=== PATIENT | male | born 1980 | race Caucasian/White ===

== ENCOUNTER 2024-11-02 06:25 | Day surgery (SDC) | payer BC, SELFPAY ==
[2024-11-02 09:24] VITALS: BMI 31.6
[2024-11-02 09:25] VITALS: BMI 31.6
[2024-11-02 09:26] VITALS: BP 133/83
[2024-11-02] MEDS: TYLENOL 1000 MG PO (09:41)
[2024-11-02] MEDS: NORMOSOL-R/PLASMALYTE-A 1000 IV (09:42)
--- NOTE | 2024-11-02 10:31 | HP.FOC2 ---
Focused History & Physical
Chief Complaint
HPI:
Chief Complaint: Umbilical hernia
HPI / Indication for Planned Procedure: Patient is a 45-year-old male with a longstanding history of a protrusion present in the umbilical area that has become more noticeable slowly enlarging to the point that his umbilical hernia is now always
present. Occasional discomfort. Patient presents today for scheduled operative correction after recent outpatient surgical evaluation.
Relevant Past Medical History: Other (GERD, osteoarthritis of the lower back, carpal tunnel history, history of cat scratch disease)
Relevant Social History: Negative
Relevant Family History: Negative
Relevant Past Surgical History: Positive for (Lymph node biopsy, tonsillectomy)
Review of Systems
Review of Pertinent Systems: All Systems Negative
Medication
See Medication form for detailed medications: Yes
Medication List (including Herbals & OTC):
Glucosamine 2 cap PO DAILY 10/28/24
Medications Reviewed: Yes
Allergies and Reactions
Patient has Allergies: Yes
Noted Allergies and Reactions:
Allergy/AdvReac Type Severity Reaction Status Date / Time
codeine Allergy Nausea Verified 11/02/24 09:24
Pertinent Physical Exam
All Other Systems: Negative
Head/Neck: Normal
Lungs: Normal
Heart: Normal
Abdomen: Other (Soft, reducible umbilical hernia, 2 cm fascial defect)
Extremities: Normal
Neurological: Normal
Diagnosis / Assessment
44-year-old male presenting for scheduled operative correction symptomatic umbilical hernia.
Plan / Procedure
Robotic assisted laparoscopic repair umbilical hernia with mesh
Anesthesia/Sedation to be done by Anesthesia Provider: Yes
--- NOTE | 2024-11-02 10:33 | W.SUR.PREOP ---
Pre-Operative Surgical Note
-
I have examined this patient prior to the performance of the scheduled procedure.
The patient's condition is unchanged from the time of the current History and
Physical and the patient is able to undergo the scheduled procedure.
--- NOTE | 2024-11-02 12:32 | W.IMMPOSTOP ---
Surgical Immed Post Op Note
-
Primary Surgeon: Cecil Garcia MD
Assisting Surgeon: Talisha Soto PA-C
Pre-op Diagnosis: Umbilical hernia
Post-op Diagnosis: Umbilical hernia + ventral hernia; 2.5 cm
Procedure Performed: Robotic assisted laparoscopic repair UH/VH with mesh; soft mesh 12 cm x 10 cm
Anesthesia Type: GETA +0.25% Marcaine with epi
Specimen / Cultures: None
Estimated Blood Loss: 6 mL
Complications: None immediate
Operative Findings: Umbilical hernia containing peritoneum and preperitoneal fat. Fascial defect 2.5 cm maximal length horizontally. Immediately above umbilical fascial defect was a separate 1 cm or slightly smaller maximal length ventral hernia.
Together both hernias also spanned maximal vertical length of 2.5 cm. Umbilical hernia closed with 0 PDS STRATAFIX symmetric suture in a running continuous fashion. Ventral hernia closed with [id number] 0 PDS STRATAFIX suture. Underlay
preperitoneal mesh repair, Bard soft mesh 12 cm vertically by 10 cm in width. Secured with 2-0 Vicryl to linea alba and right/left lateral posterior sheath. Peritoneal flap closed with 2-0 Monocryl STRATAFIX spiral.
The assistance of Talisha Soto PA-C was required due to the complexity of the procedure. During the procedure Talisha Soto PA-C assisted with port placement, robotic instrumentation and suture material exchanges, and closure of the surgical incision
sites. I was present for the entirety of the operative procedure.
--- NOTE | 2024-11-02 12:38 | OR.RPT ---
Operative Report
Operative Report
Date of operative procedure: 11/02/2024
Primary Surgeon: Cecil Garcia MD
Marble Cleaner: Talisha Soto PA-C
Pre-op Diagnosis: Umbilical hernia
Post-op Diagnosis: Umbilical hernia + ventral hernia; 2.5 cm maximal length
Procedure Performed: Robotic assisted laparoscopic JOSE repair umbilical hernia/ventral hernia with mesh; Bard soft 12 cm x 10 cm
Anesthesia: GETA +0.25% Marcaine
Specimen / Cultures: None/none
Estimated Blood Loss: 6 mL
Complications: None immediate
Indications for Operative Procedure: Patient is a 45-year-old male with a longstanding history of a protrusion present in the umbilical area that has become more noticeable slowly enlarging to the point that his umbilical hernia is now always
present. Occasional discomfort. Patient presents today for scheduled operative correction after recent outpatient surgical evaluation. We discussed various operative approaches to repair and elected to proceed with a robotic assisted laparoscopic
umbilical herniorrhaphy with mesh. The anticipated operative procedure was fully reviewed in detail with the patient preoperatively obtaining written informed consent. See office visit consultation for full details regarding discussions.
Brief Summary of Operative Findings: Umbilical hernia containing peritoneum and preperitoneal fat. Fascial defect 2.5 cm maximal length horizontally. Immediately above umbilical fascial defect was a separate 1 cm or slightly smaller maximal
length ventral hernia. Together both hernias also spanned maximal vertical length of 2.5 cm. Umbilical hernia closed with 0 PDS STRATAFIX symmetric suture in a running continuous fashion. Ventral hernia closed with [id number] 0 PDS STRATAFIX
suture. Underlay preperitoneal mesh repair, Bard soft mesh 12 cm vertically by 10 cm in width. Secured with 2-0 Vicryl to linea alba and right/left lateral posterior sheath. Peritoneal flap closed with 2-0 Monocryl STRATAFIX spiral. No
additional incidental findings on cursory inspection of the abdomen.
Operation in Detail: The patient was identified in the preoperative holding area. I confirmed the umbilical surgical site/location with the patient preoperatively. He was interviewed by the anesthesia and nursing staff then brought back to the
operating room. The patient was placed on the operating table in supine position. The bilateral upper extremities were carefully padded and tucked at the side utilizing the arm guard positioning system. Pneumatic compression boots were on the
bilateral lower extremities. Following induction of general endotracheal anesthesia the patient was administered Ancef 2 g IV for prophylactic antibiotic coverage. The patient's anterior abdominal wall was now widely and sterilely prepped with
ChloraPrep and then draped in the usual manner. The surgical time out was completed and the procedure was confirmed.
I initially proceeded with Veress needle insufflation at the left subcostal midclavicular line location. Once insufflated to 12 mmHg pressure then an 8 mm trocar was placed along the left lateral abdominal wall long term between the left costal
margin and the left ASIS and about 8 cm laterally from the anticipated left lateral boarder of the mesh placement. The robotic scope was now inserted. There was no evidence of iatrogenic injury from access. The Veress needle was withdrawn. A left
subcostal lateral 8 mm trocar and a left lower quadrant 8 mm trocar just superior/medial to the ASIS were now placed under direct visualization. The patient was then transition into slight Trendelenburg and right side down to aid in exposure of the
anterior abdominal wall. The robot was then docked.
At the surgeon console inspection confirmed the presence of a reducible umbilical hernia containing preperitoneal fat and peritoneum. There were no additional incidental intra-abdominal findings.
I initially began with the creation of a peritoneal flap along the left lateral abdominal wall. The flap was begun by incising the peritoneum along the left lateral aspect of the central abdominal wall fat pad cranially about 5cm superior to the
fascial defect. The peritoneal incision was now carried down further laterally into the left lower quadrant in an arc like manner with preservation of the posterior sheath. The preperitoneal plane was now established along the length of the flap
and developed towards the midline where the central abdominal wall fat pad was taken down with the peritoneum superiorly and inferiorly to the fascial defect. During the midline exposure of the linea alba a separate small ventral hernia defect was
noted just superior to the umbilicus. This fascial defect was only 1 cm slightly smaller in maximal length. The preperitoneal fat was fully reduced. The umbilical hernia sac and contents were now completely reduced with care to preserve the dermis
of the umbilical stalk and its subcutaneous blood supply. The peritoneal flap along the entire length was now mobilized well onto the right lateral side of the abdominal wall to allow for mesh placement with good circumferential coverage.
The umbilical fascial defect was now measured to be 2.5 cm vertically by 1 cm in width. The separate ventral hernia was only 1 cm. Incorporating a fascial bridge between these 2 defects measured 2.5 cm as well. Fascial edges were confirmed to be
cleared. The umbilical hernia defect was then closed with a running continuous 0 PDS STRATAFIX along the horizontal orientation. The small ventral hernia was closed with a [id number] 0 PDS STRATAFIX suture. A Bard soft mesh measuring 12 cm
vertically by 10 cm in width was then introduced through the 8mm trochar. The mesh was positioned within the preperitoneal flap in an underlay fashion and centered over the fascial defects to get 5 cm of coverage in all directions from the closure.
The mesh was then secured centrally to the linea alba at 2 separate locations with interrupted 2-0 Vicryl suture. The mesh was also secured at the right and left lateral borders with 2 additional interrupted 2-0 Vicryl sutures to the posterior
sheath. Hemostasis was now assured. The left lateral margin of the peritoneal flap was closed with a running continuous 2-0 Monocryl STRATAFIX suture run in a Lisandro stitch fashion. The air was aspirated out of the flap with a flexible suction
catheter confirming complete occlusion of the flap. The peritoneal covering of the mesh was completely intact as well.
At this point the robot was undocked. All sponge, instrument and needle counts were confirmed to be correct x 2. The CO2 insufflation was now fully evacuated out of the abdominal cavity. The trocar sites were removed as well as the flexible
suction catheter. Skin was closed with 4-0 Monocryl. Sterile surgical glue dressings were applied. The patient tolerated the procedure well and was transferred to the recovery unit for routine postoperative monitoring.
The assistance of Talisha Soto PA-C was required due to the complexity of surgery. During the procedure Talisha Soto PA-C assisted with port placement, robotic instrument and suture material exchanges as well as closure of the surgical sites. I
was present for the entirety of the operative procedure.
[2024-11-02 12:51] VITALS: BP 133/83; BP 146/71
[2024-11-02 13:00] VITALS: BP 144/83
[2024-11-02 13:15] VITALS: BP 142/74
[2024-11-02 13:30] VITALS: BP 146/67
[2024-11-02 14:00] VITALS: BP 146/87
== END 2024-11-02 14:08 | disposition home or self-care (01) ==
LOC: SDS 06:25
PROVIDERS: ATTENDING PHYSICIAN Surgery
DX: K42.9 Umbilical hernia without obstruction or gangrene (principal); K43.9 Ventral hernia without obstruction or gangrene
CPT/HCPCS: 49591; C1781